=== PATIENT | female | born 1960 | race Caucasian/White ===

== ENCOUNTER 2018-01-06 12:33 | Outpatient (CLI) | payer BC | END 2018-01-06 12:34 | disposition home or self-care (01) | LOC: BICMAMMO 12:33 | PROVIDERS: ATTEND Family Medicine | DX: Z12.31 Encounter for screening mammogram for malignant neoplasm of breast (principal) | CPT/HCPCS: 77063; 77067 ==

== ENCOUNTER 2018-06-03 08:53 | Day surgery (SDC) | payer BC ==
[2018-06-03] MEDS ORDERED: CEFAZOLIN 2 GM/50 ML BAG ONE (09:48)
[2018-06-03] MEDS ORDERED: Midazolam HCl 2 mg/2 ml Vial ONE ×2 (10:07→12:25)
[2018-06-03] MEDS ORDERED: Fentanyl 100 MCG/2 ML VIAL ONE ×2 (10:08→12:25)
[2018-06-03] MEDS ORDERED: Bupivacaine HCl 0.5%/Epinephrine 1:200,000/PF 30 ml Vial ONE (12:37)
[2018-06-03] MEDS ORDERED: PROPOFOL 200 MG/20 ML VIAL ONE (14:19)
--- NOTE | 2018-06-03 16:51 | OP ---
DATE OF OPERATION: 06/03/2018 PREOPERATIVE DIAGNOSES: 1. Ganglion cyst on the volar radial aspect of the left wrist. 2. Left de Quervain's tenosynovitis. POSTOPERATIVE DIAGNOSES: 1. Ganglion cyst from the flexor tendon sheath of the flexor carpi radialis. 2. Left de Quervain's tenosynovitis. PROCEDURES PERFORMED: 1. Excision of ganglion cyst from the flexure tendon sheath of the flexor carpi radialis of the left wrist. 2. Left de Quervain's release. SURGEON: Rigo Pitts MD. ANESTHESIA: General. TECHNIQUE: The patient was given preoperative IV antibiotics, taken to the operating room, placed in supine position. Satisfactory general anesthesia was performed. Left hand and upper extremity was sterilely prepped and draped in usual fashion. After exsanguination, the tourniquet was raised to 25 0 mmHg. A longitudinal incision was made on the volar radial aspect of the wrist directly over the ga nglion cyst. Blunt dissection was made down to the ganglion cyst. The small branches of the radial nerve were retracted out of the way. The radial artery was identified and retracted out of the way. The ganglion cyst, which measured approximately 1.5 x 1.5 cm was bluntly dissected down to the volar aspect of the flexor carpi radialis and the ganglion cyst was removed along with additional tendency to try to prevent recurrence of the ganglion cyst. The underlying flexor carpi radialis tendon was normal. The ganglion cyst had a normal synovial wall with a clear gelatinous fluid, which was diagno stic for ganglion cyst. Blunt dissection was then made to the first dorsal compartment on the radial aspect of the wrist and the tight first dorsal compartment was released. The abductor pollicis long us and extensor pollicis brevis tendons were both intact and in good condition and were completely fr eed up. The wound was then irrigated with normal saline. The tourniquet was released. Good hemosta sis was maintained and the wound was closed using 3-0 Rapide. Sterile dressing was applied. The pat ient was awakened, extubated, and transferred to the recovery room in stable condition. ESTIMATED BLOOD LOSS: Minimal. COMPLICATIONS: None. TOURNIQUET TIME: 15 minutes. DISCHARGE MEDICATIONS: The patient is taking ibuprofen 800 mg every 8 hours as needed for pain and w e will continue with that. She will follow up in my office in 1 week.
--- NOTE | 2018-06-08 21:49 | EKG ---
Test Reason : PREOP Blood Pressure : / mmHG Vent. Rate : 063 BPM Atrial Rate : 063 BPM P-R Int : 126 ms QRS Dur : 116 ms QT Int : 438 ms P-R-T Axes : 040 017 016 degrees QTc Int : 448 ms Normal sinus rhythm Incomplete right bundle branch block Borderline ECG When compared with ECG of 11-JUL-2016 17:12, Incomplete right bundle branch block is now Present Confirmed by SUSANNAH TAPIA (2) on 06/08/2018 9:48:57 PM Referred By: SHAREE Confirmed By:SUSANNAH TAPIA
== END 2018-06-03 14:30 | disposition home or self-care (01) ==
LOC: SDC 08:53
PROVIDERS: ATTEND Orthopaedic Surgery
PROC: 0LN60ZZ Release Left Lower Arm and Wrist Tendon, Open Approach (ICD-10-PCS; principal; 2018-06-03)
PROC: 0LB60ZZ Excision of Left Lower Arm and Wrist Tendon, Open Approach (ICD-10-PCS; principal; 2018-06-03)
DX: M67.432 Ganglion, left wrist (principal); M65.4 Radial styloid tenosynovitis [de Quervain]; G47.30 Sleep apnea, unspecified; Z79.899 Other long term (current) drug therapy
CPT/HCPCS: 93005; 93010; J0670; J2250; J2704; J3010

== ENCOUNTER 2018-12-10 12:29 | Outpatient (CLI) | payer BC ==
--- NOTE | 2018-12-10 14:38 | RAD ---
TWO VIEWS CHEST: Date: 12-10-18 Provided Clinical History: Cough. FINDINGS: Comparison 07-11-16. Cardiac silhouette is within normal limits. Lungs appear clear. No pleural fluid or pneumothorax is a pparent. Degenerative changes are seen involving the spine. IMPRESSION: No evidence for acute cardiopulmonary process. POS: C
== END 2018-12-10 12:30 | disposition home or self-care (01) ==
LOC: BICRAD 12:29
PROVIDERS: ATTEND Family Medicine
DX: R05 Cough (principal)
CPT/HCPCS: 71046

== ENCOUNTER 2019-01-07 12:06 | Outpatient (CLI) | payer BC ==
--- NOTE | 2019-01-07 12:38 | MMO ---
Bilateral MAMMO Bilat Screen [facility]. CLINICAL HISTORY: Patient is 58 years old and is seen for screening. The patient has no family history of breast cancer. The patient has no personal history of cancer. VIEWS: The views performed were: bilateral craniocaudal with tomosynthesis and bilateral mediolateral oblique with tomosynthesis. FILMS COMPARED: The present examination has been compared to prior imaging studies performed at [facility] on 12/24/2014, 12/26/2015, 01/04/2017 and 01/06/2018. MAMMOGRAM FINDINGS: There are scattered fibroglandular densities. Finding 1: There are stable benign appearing calcifications seen in both breasts. Finding 2: There are stable benign appearing densities seen in both breasts. There are no suspicious masses, suspicious calcifications, or new areas of architectural distortion. IMPRESSION: THERE IS NO MAMMOGRAPHIC EVIDENCE OF MALIGNANCY. A ROUTINE FOLLOW-UP MAMMOGRAM IN 1 YEAR IS RECOMMENDED. THE RESULTS OF THIS EXAM WERE SENT TO THE PATIENT. ACR BI-RADS Category 2 - Benign finding MAMMOGRAPHY NOTE: 1. A negative mammogram report should not delay a biopsy if a dominant of clinically suspicious mass is present. 2. Approximately 10% to 15% of breast cancers are not detected by mammography. 3. Adenosis and dense breasts may obscure an underlying neoplasm.
== END 2019-01-07 12:07 | disposition home or self-care (01) ==
LOC: BICMAMMO 12:06
PROVIDERS: ATTEND Family Medicine
DX: Z12.31 Encounter for screening mammogram for malignant neoplasm of breast (principal)
CPT/HCPCS: 77063; 77067

== ENCOUNTER 2019-06-17 03:25 | Inpatient (IN) | payer BC ==
[2019-06-17] MEDS ORDERED: Ketorolac Tromethamine 30 MG/ML VIAL ONE (04:53)
[2019-06-17] MEDS ORDERED: cefTRIAXone\\ROCEPHIN 2 GM VIAL ONE (04:53)
[2019-06-17] MEDS ORDERED: Azithromycin 500 MG VIAL ONE (05:57)
[2019-06-17] MEDS ORDERED: Dextrose 50% Abboject 50 ML SYRINGE ONE (06:38)
[2019-06-17] MEDS ORDERED: Naloxone HCl 0.4 mg/ml Vial ONE (06:46)
[2019-06-17] MEDS ORDERED: Naloxone HCl 2 mg/2 ml Syringe ONE (06:46)
[2019-06-17] MEDS ORDERED: Enoxaparin Sodium 80 MG/0.8 ML SYRINGE ONE (07:25)
[2019-06-17] MEDS ORDERED: Iopamidol-370 76% 500 ML 1 ML ONE (11:36)
[2019-06-17] MEDS ORDERED: Nitroglycerin 0.4 MG TAB (25 Tab Bottle) PO PRN (13:30)
[2019-06-17] MEDS ORDERED: Calcium Carbonate 500 MG ChewTAB PO PRN (13:31)
[2019-06-17] MEDS ORDERED: Senokot S 8.6-50 MG TAB PO PRN (13:31)
[2019-06-17] MEDS ORDERED: ALPRAZolam 0.5 MG TAB PO PRN (13:36)
--- NOTE | 2019-06-17 13:52 | HP ---
PRIMARY CARE: Dr. Rosina Boykin. CHIEF COMPLAINT: Right-sided chest discomfort of one day duration. HISTORY OF PRESENT ILLNESS: The patient is a 58-year-old female with COPD and tobacco dependence, presented to the emergency room with above symptoms. She recently returned from a trip to [place] for Thanksgiving. The pain was right sided that started around 3 p.m. yesterday. The pain was sharp, worse on deep breath. The pain progressively got worse. She had cough, which was essentially nonproductive. She denies any fever or chills. She also had one of her colleagues with pneumonia at work. She denies any nausea, vomiting, diaphoresis, or palpitations. No leg swelling reported. PAST MEDICAL HISTORY: 1. COPD. 2. Hypertension. 3. Tobacco dependence. 4. Anxiety. PAST SURGICAL HISTORY: 1. Hysterectomy. 2. Left knee surgery. 3. Left wrist surgery. ALLERGIES: NO KNOWN DRUG ALLERGIES. CURRENT HOME MEDICATIONS: 1. Albuterol inhaler as needed. 2. Spiriva daily. 3. Xanax as needed. 4. Ibuprofen as needed. 5. Estradiol 0.5 mg daily. 6. Escitalopram 10 mg daily. SOCIAL HISTORY: The patient currently lives at home. She is a former smoker. Denies any drug use. Lives at home with her family. FAMILY HISTORY: Negative for premature coronary artery disease. REVIEW OF SYSTEMS: All other review of systems were reviewed and were found negative. PHYSICAL EXAMINATION: VITAL SIGNS: In the emergency room showed temperature 98.3, respirations 20, heart rate of 78, blood pressure 163/101, O2 saturation of 95% on 2 L nasal cannula. GENERAL: A 58-year-old female, in mild distress due to right-sided chest discomfort. HEENT: Head, atraumatic and normocephalic. Sclerae anicteric. Moist mucous membranes. No oral lesion. NECK: Supple. No JVD. No carotid bruit. LUNGS: Showed scattered rhonchi, mainly at the right base without any wheezing or rales. HEART: S1, S2 present. Regular rate and rhythm. No rubs or gallops. ABDOMEN: Soft, nontender. Bowel sounds present. No rebound or guarding. EXTREMITIES: No edema or calf tenderness. NEUROLOGIC: Grossly nonfocal, moves all 4 extremities. PSYCHIATRY: Alert, awake, and oriented x3. SKIN: Warm and dry. LYMPH NODES: No palpable lymph nodes in the neck. PERIPHERAL VASCULAR: Radial pulses palpable bilaterally. MUSCULOSKELETAL: No joint swelling or tenderness. LABORATORY FINDINGS: WBC 13.6 with hemoglobin 14.9, platelet count of 170. Lactic acid 0.7. Chemistry showed sodium 138, potassium 4.1, chloride 104, bicarb 29, BUN 10, creatinine 0.85, glucose of 125, bilirubin 0.8. AST and ALT, normal range. Telemetry monitoring by my review showed sinus rhythm. CT angiogram of the chest per ER physician report showed pulmonary embolism with possible pulmonary infarct. Official report pending at this time. IMPRESSION: 1. Right-sided chest pain secondary to pulmonary embolism. The patient also has acute hypoxic respiratory failure secondary to pulmonary embolism. 2. Chronic obstructive pulmonary disease. 3. Anxiety. 4. History of tobacco abuse. PLAN: The patient will be monitored on the telemetry unit. She has been started on Lovenox 1 mg/kg b.i.d. Echocardiogram will be obtained. We will also check bilateral lower extremity Doppler. Pulmonary will be consulted. We will check troponin. Echocardiogram will be obtained. We will resume home medications. Vital signs q.4 hourly. Plan of care was discussed with the patient in detail. She stated understanding. Job ID: [id number]
--- NOTE | 2019-06-17 13:52 | CT ---
CTA THORAX UTILIZING IV CONTRAST AND PE PROTOCOL AND 3D REFORMATTED IMAGING: INDICATION: CHEST PAIN COMPARISON None. FINDINGS: There is occlusive thrombus within the anterolateral right lower lobe with pulmonary hemorrhage in th e right lower lobe. There is also a pulmonary infarct involving the posterolateral right lower lobe. There are areas of subsegmental volume loss in the right lower lobe. There is a very tiny right pleur al effusion. There is nonocclusive thrombus within the segmental branches of the left lower lobe. The lobar and segmental branches of the upper lobes are clear. The visualized lobar and segmental branch es of the middle lobe are clear. There are areas of subsegmental volume loss within the middle lobe. The lobar and segmental pulmonary arteries of the lingula are clear. No pathologically enlarged lymph nodes are evident. There is scattered emphysema. There is a calcified granuloma in the right upper l obe. There is a small hiatal hernia. No acute osseous abnormality demonstrated. IMPRESSION: 1. Occlusive segmental pulmonary embolus to the anterolateral right lower lobe with areas of pulmonar y hemorrhage within the anterolateral segment of the right lower lobe. There is also some occlusive t hrombus within the segmental pulmonary arteries of the right posterolateral lower lobe with an area o f pulmonary infarct involving the right lower lobe. There is a small right pleural effusion. 2. Nonocclusive thrombus involving the segmental pulmonary arteries of the left lower lobe. 3. Emphysema. 4. Findings of prior granulomatous disease. 5. Findings were called to Dr. Weinberg at 7:01 a.m. CODE CR POS: OFF
[2019-06-17 14:26] LABS: Troponin I Less than 0.010 ng/mL (< 0.028)
[2019-06-17 14:41] LABS: CKMB 0.8 ng/mL (0-6.6); Troponin I Less than 0.010 ng/mL (< 0.028)
[2019-06-17 14:43] LABS: ALT (SGPT) 15 U/L (8-55); AST (SGOT) 15 U/L (5-34); Albumin 3.9 g/dL (3.5-5.0); Alkaline Phosphatase 64 U/L (40-110); Anion Gap 9 mmol/L (10-20); BUN (Urea Nitrogen) 10 mg/dL (9.8-20.1); Bilirubin, Total 0.8 mg/dL (0.2-1.2); CK (CPK) 41 U/L (29-168); Calc. Creatinine Clearance 0 mL/min (70-130); Carbon Dioxide 29 mmol/L (22-29); Chloride 104 mmol/L (98-107); Estimated GFR-MDRD 68; Glucose 125 mg/dL (70-105); Potassium 4.1 mmol/L (3.5-5.1); Protein, Total 6.9 g/dL (6.0-8.3); Sodium 138 mmol/L (136-145)
[2019-06-17] MEDS ORDERED: Acetaminophen 325 MG TAB ONE (14:54)
[2019-06-17] MEDS: Sodium Chloride 0.9% 1,000 ML IV SCH (15:08)
[2019-06-17] MEDS: Acetaminophen 325 MG TAB PO PRN (15:09)
[2019-06-17] MEDS ORDERED: Cyclobenzaprine 10 MG TAB PO PRN (15:19)
--- NOTE | 2019-06-17 16:12 | ULT ---
BILATERAL LOWER EXTREMITY VENOUS DUPLEX EXAM: Date: 06/17/19 HISTORY: Bilateral leg pain and swelling. FINDINGS: Real-time color Doppler of right and left lower extremity was performed from groin to calf. This incl udes evaluation of the common femoral, superficial and profunda femoral, saphenous, popliteal, and po sterior tibial veins. This shows patent deep venous systems bilaterally. There is normal compressibil ity and augmentation. There is no evidence of deep venous thrombosis. IMPRESSION: No evidence of deep venous thrombosis of either lower extremity. POS: IRON
[2019-06-17 16:39] LABS: %Basophils 0.1 % (0.0-1.0); %Eosinophils 0.3 % (0.0-10.0); %Lymphocytes 18.1 % (21.0-51.0); %Monocytes 6.8 % (0.0-10.0); %Neutrophils 74.7 % (42.0-75.0); Hemoglobin 14.9 g/dL (12.0-16.0); Mean Corpuscular HGB CONC 34.7 g/dL (32.0-36.0); Mean Corpuscular Hemoglobin 32.7 pg (27.0-31.0); Mean Corpuscular Volume 94.3 fL (78.0-98.0); Mean Platelet Volume 8.2 fL (7.4-10.4); Platelet Count 170 thou/uL (130-400); RBC Distribution Width 12.3 % (11.5-14.5); Red Blood Cell (RBC) Count 4.55 mill/uL (4.20-5.40); White Blood Cell (WBC) Count 13.6 thou/uL (4.8-10.8)
[2019-06-17 16:40] LABS: #Lymphocytes 2.5 thou/uL (1.20-3.40); #Monocytes 0.9 thou/uL (0.11-0.59); #Neutrophils 10.2 thou/uL (1.40-6.50)
[2019-06-17 18:30] VITALS: BMI 27.6
[2019-06-17] MEDS: Ipratropium Bromide 2.5 ml Neb NEB SCH (18:30)
--- NOTE | 2019-06-17 20:02 | RAD ---
Exam: Chest one view HISTORY:Chest pain FINDINGS: Exam was performed on 06/17/2019 at 3:47 AM. Exam is on the "taken list" and submitted for official i nterpretation on 06/17/2018 at 8:02 PM Cardiac silhouette: Normal Aorta: Unremarkable Pulmonary vessels: Normal Costophrenic angles: Clear LUNGS: Right lower lobe opacity due to infiltrate Pneumothorax: None Osseous abnormalities: None IMPRESSION: Right lower lobe infiltrate. Transcribed Date/Time: 06/17/2019 8:19 PM
[2019-06-17] MEDS: Famotidine 20 MG TAB PO SCH (20:39)
[2019-06-17] MEDS: Enoxaparin Sodium 80 MG/0.8 ML SYRINGE SC SCH (20:39)
[2019-06-17] MEDS: traMADol HCl 50 MG TAB PO PRN (20:40)
[2019-06-18 04:50] LABS: Hemoglobin 14.3 g/dL (12.0-16.0); Platelet Count 171 thou/uL (130-400)
[2019-06-18 05:00] LABS: ALT (SGPT) 11 U/L (8-55); AST (SGOT) 11 U/L (5-34); Albumin 3.7 g/dL (3.5-5.0); Alkaline Phosphatase 65 U/L (40-110); Anion Gap 12 mmol/L (10-20); BUN (Urea Nitrogen) 8 mg/dL (9.8-20.1); Bilirubin, Total 0.9 mg/dL (0.2-1.2); Calc. Creatinine Clearance 103 mL/min (70-130); Calcium 8.7 mg/dL (7.8-10.44); Carbon Dioxide 24 mmol/L (22-29); Chloride 106 mmol/L (98-107); Estimated GFR-MDRD 74; Globulin 3.1 g/dL (2.4-3.5); Glucose 144 mg/dL (70-105); Potassium 3.6 mmol/L (3.5-5.1); Protein, Total 6.8 g/dL (6.0-8.3); Sodium 138 mmol/L (136-145)
[2019-06-18] MEDS: Acetaminophen 325 MG TAB PO PRN ×3 (06:25→21:16)
[2019-06-18] MEDS: Ipratropium Bromide 2.5 ml Neb NEB SCH ×4 (07:52→18:49)
[2019-06-18] MEDS ORDERED: FLU VACC QS2019-20(6MOS UP)/PF 60 MCG/0.5 ML SYRINGE IM ONE (09:00)
[2019-06-18] MEDS: Escitalopram Oxalate 10 mg Tablet PO SCH (09:33)
[2019-06-18] MEDS: Famotidine 20 MG TAB PO SCH ×2 (09:34→21:08)
[2019-06-18] MEDS: Enoxaparin Sodium 80 MG/0.8 ML SYRINGE SC SCH (09:34)
[2019-06-18] MEDS: traMADol HCl 50 MG TAB PO PRN (12:56)
[2019-06-18] MEDS: Sodium Chloride 0.9% 1,000 ML IV SCH (12:58)
[2019-06-18] MEDS ORDERED: methylPREDNISolone Sod Succ/PF 125 MG/2 ML VIAL IVP SCH (19:30)
[2019-06-18] MEDS: Apixaban 5 MG TAB PO SCH (21:09)
--- NOTE | 2019-06-18 23:17 | PDOC.HOSPP ---
- Subjective Encounter Date: 06/18/19 Encounter Time: 18:00 Subjective: Patient seen and examined for PE. Rt sided CP improving. No new complaints. No overnight events - Objective Vital Signs & Weight: Vital Signs (12 hours) Temp Pulse Resp BP Pulse Ox 06/18/19 19:30 98.6 F 70 16 128/90 94 L 06/18/19 18:49 78 16 92 L 06/18/19 16:00 98.7 F 76 18 130/60 96 06/18/19 13:37 79 20 93 L 06/18/19 12:00 97.9 F 78 16 127/79 96 Weight Admit Weight 187 lb 6 oz Weight 187 lb 6 oz I&O: 06/17/19 06/18/19 06/19/19 06:59 06:59 06:59 Intake Total 1200 1700 Balance 1200 1700 Result Diagrams: 06/18/19 04:03 06/18/19 04:03 EKG Reviewed by me: Yes (Tele SR) Hospitalist ROS - Review of Systems Respiratory: denies: cough, dry, shortness of breath, hemoptysis, SOB with excertion, pleuritic pain, sputum, wheezing, other Cardiovascular: denies: chest pain, palpitations, orthopnea, paroxysmal noc. dyspnea, edema, light headedness, other Gastrointestinal: denies: nausea, vomiting, abdominal pain, diarrhea, constipation, melena, hematochezia, other - Medication Medications: Active Medications Generic Name Dose Route Start Last Admin Trade Name Freq PRN Reason Stop Dose Admin Acetaminophen 650 mg 06/17/19 13:31 06/18/19 21:16 Tylenol PO 650 mg Q4H PRN Administration Headache/Fever/Mild Pain (1-3) Apixaban 10 mg 06/18/19 21:00 06/18/19 21:09 Eliquis PO 10 mg BID JUSTO Administration Escitalopram Oxalate 10 mg 06/18/19 09:00 06/18/19 09:33 Lexapro PO 10 mg DAILY JUSTO Administration Famotidine 20 mg 06/17/19 21:00 06/18/19 21:08 Pepcid PO 20 mg BID JUSTO Administration Sodium Chloride 1,000 mls @ 50 mls/hr 06/17/19 13:45 06/18/19 12:58 Normal Saline 0.9% IV 06/19/19 05:44 1,000 mls .Q20H JUSTO Administration Ipratropium Wilsons 2.5 ml 06/17/19 19:00 06/18/19 18:49 Atrovent NEB 2.5 ml [id number] JUSTO Administration Tramadol HCl 50 mg 06/17/19 15:18 06/18/19 12:56 Ultram PO 50 mg Q4H PRN Administration Moderate Pain (4-6) - Exam General Appearance: NAD Heart: RRR, no gallops, no rubs Respiratory: no rales, no ronchi, rhonchi Gastrointestinal: soft, non-distended, normal bowel sounds Extremities: no edema Hosp A/P - Plan DVT proph w/lovenox Acute hypoxic Resp failure (POA) PE Pleuritic CP due to PE COPD Anxiety Former smoker PLAN: Cont Lovenox Await Echo Risk associated with anticoag d/w patient - she stated understanding Cont other meds
[2019-06-19] MEDS: Ipratropium Bromide 2.5 ml Neb NEB SCH ×3 (01:16→13:37)
--- NOTE | 2019-06-19 02:09 | CON ---
DATE OF CONSULTATION: HISTORY OF PRESENT ILLNESS: Ms. Crandall is a very pleasant woman, who presented to the hospital yesterday morning with complaints of pleuritic chest discomfort. She has had no prior similar symptoms. She did recently take a driving trip to [place] to [facility]. She was put up with the pain for about 18 hours and then came to the emergency room. PAST MEDICAL HISTORY: Remarkable for; 1. Smoking. 2. Hypertension. 3. History of anxiety. 4. History of methamphetamine addiction. She says she only got away from med addiction by getting incarcerated. 5. Status post hysterectomy. 6. History of left knee surgery. 7. History of wrist surgery. MEDICATIONS: She is on; 1. Spiriva. 2. Albuterol. 3. Xanax. 4. Ibuprofen. 5. Estrogen. 6. Escitalopram prior to admission. SOCIAL HISTORY: She said she is still smoking. She denies drinking. She denies using drugs. FAMILY HISTORY: Negative for lung disease in early age. REVIEW OF SYSTEMS: 10-point review of systemsis otherwise negative. She aid she was short of breath yesterday, but that is better today. PHYSICAL EXAMINATION: VITAL SIGNS: She is afebrile. Heart rate 76, respiratory rate is 18, oximetry is up to 96 on room air, blood pressure 130/60. HEAD AND NECK: Unremarkable. LUNGS: Clear. HEART: Regular rhythm. S1 and S2 are normal. ABDOMEN: Soft and nontender. EXTREMITIES: Without clubbing, cyanosis, or edema. DIAGNOSTIC STUDIES: CT pulmonary angiogram is positive for thromboembolic disease. Doppler venography is negative. White count 13.6, hemoglobin 14.9, platelets 170. IMPRESSION AND PLAN: Thromboembolic disease after a trip in a car. She is up to date on her mammograms and screening colonoscopy. We will switch her to p.o. anticoagulants. I would anticipate that she might be a candidate for discharge in a day or two. With regard to her pleuritic chest discomfort, probably one dose of steroids will help with that. We will continue to follow. She has amazingly upfront about her past addiction and struggle with methamphetamine. It is fortunate that she was incarcerated, and was able to get away from it. Actually, I have not met many patients that got away from using methamphetamine. She is labeled as having chronic obstructive pulmonary disease, but it is not clear to me whether or not she has ever had pulmonary function testing. It is not really a non-issue at this point, but this can be done at a later date. TIME SPENT: This is a 50-minute consult, 50% of the time was spent on the unit coordinating care. Job ID: [id number]
[2019-06-19] MEDS: Famotidine 20 MG TAB PO SCH (08:44)
[2019-06-19] MEDS: Escitalopram Oxalate 10 mg Tablet PO SCH (08:44)
[2019-06-19] MEDS: Apixaban 5 MG TAB PO SCH (08:44)
[2019-06-19 11:29] VITALS: BP 152/81; TEMP 97.7
--- NOTE | 2019-06-19 13:51 | PRG ---
DATE OF SERVICE: 06/19/2019 SUBJECTIVE: Ms. Crandall's pleuritic chest pain is gone. She says she feels great. She wants to go home. VITAL SIGNS: She is afebrile. Heart rate 80, respiratory rate 18, satting 92% on room air, blood pressure 152/81. LUNGS: Clear. HEART: ABDOMEN: Soft. Echocardiogram was ordered. Mild mitral regurgitation, ejection fraction was noted. IMPRESSION AND PLAN: Thromboembolic disease, most likely related to recent long trip in a motor vehicle. PLAN: Eliquis loading dose. Switch to Eliquis maintenance dose. I have asked her to follow up with me in . I have given her my office number to make a followup appointment. Job ID: [id number]
--- NOTE | 2019-06-19 16:49 | DIS ---
DATE OF ADMISSION: 06/17/2019 DATE OF DISCHARGE: 06/19/2019 DISCHARGE DISPOSITION: Home. FOLLOWUP: 1. Follow up with primary care physician, Dr. Rosina Kwon, in 3 days. 2. Follow up with Dr. Miguelito Oconnor in 2 to 3 weeks. ALLERGIES: NO KNOWN DRUG ALLERGIES. DISCHARGE MEDICATIONS: Eliquis 10 mg twice daily for total of seven days and then 5 mg b.i.d. All other home medications were left unchanged. The patient was seen on the day of discharge. Denies any new complaints. No chest pain, shortness of breath, or palpitations. BRIEF HOSPITAL COURSE: The patient is a 58-year-old female, who presented to the emergency room with right-sided chest discomfort of one day duration. CT angiogram of the chest was consistent with occlusive segmental pulmonary embolus to the anterolateral right lower lobe with areas of pulmonary hemorrhage within the anterolateral segment of the right lower lobe. There was also a right posterolateral lower lobe with an area of pulmonary infarct with right-sided pleural effusion. There was nonocclusive thrombus involving the segmental arteries of left lower lobe as well. An echocardiogram was obtained that showed ejection fraction 55% to 60% with diastolic dysfunction, mild mitral regurgitation, and mild tricuspid regurgitation. Bilateral lower extremity Doppler was negative. The patient was evaluated by Pulmonary/Critical Care. Lovenox has been switched to Eliquis. She understands the risk associated with anticoagulation. She has been cleared by Dr. Oconnor for discharge. FINAL DIAGNOSES: 1. Acute hypoxic respiratory failure secondary to bilateral pulmonary embolism, present on admission. 2. Pleuritic chest pain secondary to pulmonary embolism. 3. Chronic obstructive pulmonary disease. 4. Anxiety. 5. Former smoker. Plan of care was discussed with the patient in detail. She stated understanding. Job ID: [id number]
== END 2019-06-19 14:19 | disposition home or self-care (01) | DRG 175 ==
LOC: ERS 03:25 → ERHOLD 13:25 → 2NO 17:16
PROVIDERS: ADMIT Internal Medicine; ATTEND Internal Medicine
DX: I26.09 Other pulmonary embolism with acute cor pulmonale (principal); J96.01 Acute respiratory failure with hypoxia; R04.89 Hemorrhage from other sites in respiratory passages; J44.9 Chronic obstructive pulmonary disease, unspecified; F41.9 Anxiety disorder, unspecified; I10 Essential (primary) hypertension; Z90.710 Acquired absence of both cervix and uterus; Z79.51 Long term (current) use of inhaled steroids; Z79.899 Other long term (current) drug therapy; Z87.891 Personal history of nicotine dependence
CPT/HCPCS: 36415; 71045; 71275; 80053; 82550; 82553; 83605; 83735; 83880; 84484; 85014; 85018; 85025; 85049; 87040; 93306; 93970; 94640; 94760; 99285; J0456; J0696; J1650; J1885; J2310; J2930; Q9967

== ENCOUNTER 2019-08-19 12:34 | Outpatient (CLI) | payer BC ==
--- NOTE | 2019-08-19 13:00 | RAD ---
XR Chest Pa Lat @ P[facility] HISTORY: Dyspnea COMPARISON: 06/17/2019 FINDINGS: The heart size is normal. The lungs are well expanded without focal areas of consolidation, pneumothorax or pleural effusions. There are degenerative changes in the spine IMPRESSION: No radiographic evidence of acute cardiopulmonary process.
== END 2019-08-19 12:35 | disposition home or self-care (01) ==
LOC: RAD 12:34
PROVIDERS: ATTEND Internal Medicine Critical Care Medicine
DX: R06.00 Dyspnea, unspecified (principal)
CPT/HCPCS: 71046

== ENCOUNTER 2019-12-29 12:40 | Outpatient (CLI) | payer BC ==
--- NOTE | 2019-12-29 12:57 | RAD ---
PA AND LATERAL VIEWS CHEST: HISTORY: Dyspnea. COMPARISON: 08/19/2019. FINDINGS: The heart size is normal. The aorta is tortuous. The lungs are expanded without focal areas of cons olidation, pneumothoraces, or pleural effusions. There are degenerative changes in the spine. IMPRESSION: No acute process. POS: RENNY
== END 2019-12-29 12:41 | disposition home or self-care (01) ==
LOC: BICRAD 12:40
PROVIDERS: ATTEND Internal Medicine Critical Care Medicine
DX: R06.00 Dyspnea, unspecified (principal)
CPT/HCPCS: 71046

== ENCOUNTER 2020-02-17 11:52 | Outpatient (CLI) | payer BC ==
--- NOTE | 2020-02-17 12:55 | MMO ---
Bilateral MAMMO Bilat Screen [facility]. CLINICAL HISTORY: Patient is 59 years old and is seen for screening. The patient has no family history of breast cancer. The patient has no personal history of cancer. VIEWS: The views performed were: bilateral craniocaudal with tomosynthesis and bilateral mediolateral oblique with tomosynthesis. FILMS COMPARED: The present examination has been compared to prior imaging studies performed at [facility] on 12/26/2015, 01/04/2017, 01/06/2018 and 01/07/2019. This study has been interpreted with the assistance of computer-aided detection. MAMMOGRAM FINDINGS: There are scattered fibroglandular densities. There are no suspicious masses, suspicious calcifications, or new areas of architectural distortion. IMPRESSION: THERE IS NO MAMMOGRAPHIC EVIDENCE OF MALIGNANCY. A ROUTINE FOLLOW-UP MAMMOGRAM IN 1 YEAR IS RECOMMENDED. THE RESULTS OF THIS EXAM WERE SENT TO THE PATIENT. ACR BI-RADS Category 1 - Negative MAMMOGRAPHY NOTE: 1. A negative mammogram report should not delay a biopsy if a dominant of clinically suspicious mass is present. 2. Approximately 10% to 15% of breast cancers are not detected by mammography. 3. Adenosis and dense breasts may obscure an underlying neoplasm. Reported by: GEORGIANA IZQUIERDO MD Electonically Signed: [id number]
== END 2020-02-17 11:53 | disposition home or self-care (01) ==
LOC: BICMAMMO 11:52
PROVIDERS: ATTEND Family Medicine
DX: Z12.31 Encounter for screening mammogram for malignant neoplasm of breast (principal)
CPT/HCPCS: 77063; 77067

== ENCOUNTER 2020-06-01 14:48 | Emergency (ER) | payer BC ==
[~2020-06-01 14:48] MED LIST: Iopamidol-370 76% 500 ML 1 ML ONE
[2020-06-01 15:32] LABS: #Basophils 0.1 thou/uL (0.0-0.2); #Eosinphils 0.1 thou/uL (0.0-0.7); #Lymphocytes 4.1 thou/uL (1.20-3.40); #Monocytes 0.5 thou/uL (0.11-0.59); %Basophils 0.8 % (0.0-1.0); %Eosinophils 0.7 % (0.0-10.0); %Lymphocytes 41.9 % (21.0-51.0); %Monocytes 5.4 % (0.0-10.0); %Neutrophils 51.3 % (42.0-75.0); Hemoglobin 16.5 g/dL (12.0-16.0); Mean Corpuscular HGB CONC 35.1 g/dL (32.0-36.0); Mean Corpuscular Hemoglobin 32.8 pg (27.0-31.0); Mean Corpuscular Volume 93.5 fL (78.0-98.0); Platelet Count 183 thou/uL (130-400); RBC Distribution Width 12.7 % (11.5-14.5); Red Blood Cell (RBC) Count 5.03 mill/uL (4.20-5.40); White Blood Cell (WBC) Count 9.7 thou/uL (4.8-10.8)
[2020-06-01 15:49] LABS: ALT (SGPT) 15 U/L (8-55); AST (SGOT) 18 U/L (5-34); Albumin 4.4 g/dL (3.5-5.0); Alkaline Phosphatase 67 U/L (40-110); Anion Gap 14 mmol/L (10-20); BUN (Urea Nitrogen) 10 mg/dL (9.8-20.1); Bilirubin, Total 0.6 mg/dL (0.2-1.2); Calc. Creatinine Clearance 0 mL/min (70-130); Calcium 10.1 mg/dL (7.8-10.44); Carbon Dioxide 29 mmol/L (22-29); Chloride 103 mmol/L (98-107); Estimated GFR-MDRD 55; Globulin 3.3 g/dL (2.4-3.5); Glucose 105 mg/dL (70-105); Potassium 3.8 mmol/L (3.5-5.1); Protein, Total 7.7 g/dL (6.0-8.3); Sodium 142 mmol/L (136-145)
--- NOTE | 2020-06-01 17:05 | CT ---
CTA Angio Chest W WO Con 06/01/2020 4:45 PM Indication: History of neck pain and dyspnea Technique: Multiple CTA images were obtained of the thorax with IV contrast. 3-D rendering: MIP quincy nstructed images were created and reviewed. Comparison: Prior CT PE examination dated June 17, 2019 Findings: Pulmonary arteries: There is an atretic appearance of the anterior lateral right lower lobe segmenta l pulmonary artery likely reflecting sequela of chronic pulmonary embolus seen on the prior examination. Mild areas of scarring are present within the anterolateral right lower lobe. No acute c entral or segmental pulmonary embolus is evident. Heart and Aorta: Normal appearing. Mediastinum:There are mildly prominent pretracheal and left tracheobronchial lymph nodes. The largest measures 1.2 cm. These are slightly more pronounced than on the prior exam. Lungs:There are hazy groundglass airspace opacities within both lungs which are nonspecific. Findings can be seen with diffuse subsegmental atelectasis, alveolar edema or hypersensitivity pneumonitis. Diffuse atypical infectious process and pneumonitis could have a similar appearance. Pleural space: Clear. Upper Abdomen: No acute abnormality. Osseous Structures: There is thoracolumbar scoliosis. There is scattered degenerative and osteoarthr itic change present. No acute fracture or subluxation demonstrated. Soft tissues:No abnormality. Other findings:None. Impression: 1. No acute central or segmental pulmonary embolus demonstrated. Slight atretic appearance to the ant erolateral right lower lobe segmental pulmonary artery likely reflecting sequela of chronic PE. There is mild scarring within the anterolateral right lower lobe likely related to prior pulmonary in farct seen on comparison CT dated 06/17/2019. 2. Diffuse groundglass airspace opacity is nonspecific. This can be seen with peripheral airways dise ase and subsegmental atelectasis; however, entities such as alveolar edema, pulmonary hemorrhage, hypersensitivity pneumonitis or an atypical infectious pneumonitis could produce a similar appearance . 3. Nonspecific mildly prominent mediastinal lymph nodes may be reactive in nature. As a conservative measure a follow-up CT in 6-8 weeks may be helpful to document stability or resolution.
--- NOTE | 2020-06-01 17:29 | CT ---
CTA HEAD WITH AND WITHOUT CONTRAST CTA NECK WITH CONTRAST: 06/01/20 TECHNIQUE: CT head performed without IV contrast. This is followed by CTA head with angio protocol including CTA neck with angio protocol with multiplanar reconstruction and 3D postprocessing. INDICATIONS: Headache. CT HEAD WITHOUT CONTRAST: Ventricles have normal size and position. There is no evidence of intracranial hemorrhage. No mass, e deneen, or infarct. Paranasal sinuses appear clear. Evidence of mucosal edema in the left mastoid air c ells. IMPRESSION: No acute intracranial process. CTA HEAD: The intracranial internal carotid arteries are patent and symmetric. The cavernous portions of both ICAs are patent. There is mild fusiform ectasia of both cavernous ICAs . The middle cerebral arteries are patent and symmetric. The basilar artery is patent. The posterior cerebral arteries are both visualized. There is evidence of stenosis involving the P1 segment of the left posterior cerebral just beyond its origin from the b asilar artery. No definite aneurysm identified. IMPRESSION: 1. There is evidence of significant stenosis at the origin of the left posterior cerebral artery . 2. CTA head otherwise unremarkable. CTA NECK: No stenosis at the origin of the arch vessels. Common carotid arteries are patent and symmetric. The internal carotid arteries and carotid bulbs are unremarkable. Both internal carotid arteries are mild ly tortuous; however, there is no evidence of extracranial internal carotid artery stenosis. Vertebral arteries are patent. Mildly dominant right vertebral. Soft tissues unremarkable. Mild degenerative change in the cervical spine. Spondylosis seen at C3-4 p roduces mild cord compression and there is evidence of bilateral foraminal stenosis at this level. Soft tissues reveal a mass extending from the isthmus of the thyroid into the substernal region which measures up to 2.2 cm. Recommend dedicated evaluation with elective thyroid ultrasound exam. IMPRESSION: 1. Unremarkable CTA neck. 2. Mass extending inferiorly from the isthmus of the thyroid which is heterogeneous. Recommend t hyroid ultrasound to further evaluate. 3. Degenerative changes in the cervical spine with spondylosis at C3-4 producing cord compressio n and central canal and foraminal stenosis. Code T
--- NOTE | 2020-06-02 11:46 | CT ---
CTA HEAD WITH AND WITHOUT CONTRAST CTA NECK WITH CONTRAST: 06/01/20 TECHNIQUE: CT head performed without IV contrast. This is followed by CTA head with angio protocol including CTA neck with angio protocol with multiplanar reconstruction and 3D postprocessing. INDICATIONS: Headache. CT HEAD WITHOUT CONTRAST: Ventricles have normal size and position. There is no evidence of intracranial hemorrhage. No mass, e deneen, or infarct. Paranasal sinuses appear clear. Evidence of mucosal edema in the left mastoid air c ells. IMPRESSION: No acute intracranial process. CTA HEAD: The intracranial internal carotid arteries are patent and symmetric. The cavernous portions of both ICAs are patent. There is mild fusiform ectasia of both cavernous ICAs . The middle cerebral arteries are patent and symmetric. The basilar artery is patent. The posterior cerebral arteries are both visualized. There is evidence of stenosis involving the P1 segment of the left posterior cerebral just beyond its origin from the b asilar artery. No definite aneurysm identified. IMPRESSION: 1. There is evidence of significant stenosis at the origin of the left posterior cerebral tk ry. 2. CTA head otherwise unremarkable. CTA NECK: No stenosis at the origin of the arch vessels. Common carotid arteries are patent and symmetric. The internal carotid arteries and carotid bulbs are unremarkable. Both internal carotid arteries are mild ly tortuous; however, there is no evidence of extracranial internal carotid artery stenosis. Vertebral arteries are patent. Mildly dominant right vertebral. Soft tissues unremarkable. Mild degenerative change in the cervical spine. Spondylosis seen at C3-4 p roduces mild cord compression and there is evidence of bilateral foraminal stenosis at this level. Soft tissues reveal a mass extending from the isthmus of the thyroid into the substernal region which measures up to 2.2 cm. Recommend dedicated evaluation with elective thyroid ultrasound exam. IMPRESSION: 1. Unremarkable CTA neck. 2. Mass extending inferiorly from the isthmus of the thyroid which is heterogeneous. Recommend thyroid ultrasound to further evaluate. 3. Degenerative changes in the cervical spine with spondylosis at C3-4 producing cord compress ion and central canal and foraminal stenosis. Code T
--- NOTE | 2020-06-04 16:34 | EKG ---
Test Reason : Blood Pressure : / mmHG Vent. Rate : 059 BPM Atrial Rate : 059 BPM P-R Int : 142 ms QRS Dur : 108 ms QT Int : 412 ms P-R-T Axes : 082 -13 018 degrees QTc Int : 407 ms Sinus bradycardia Incomplete right bundle branch block Borderline ECG Confirmed by SAMANTHA KATE DO ([id number]), web content editor JAI RENTERIA ([id number] on 06/04/2020 4:33:59 PM Referred By: Confirmed By:SAMANTHA KATE DO
== END 2020-06-01 18:41 | disposition home or self-care (01) ==
LOC: ERS 14:48
DX: M48.02 Spinal stenosis, cervical region (principal); I66.22 Occlusion and stenosis of left posterior cerebral artery; M54.6 Pain in thoracic spine; E07.89 Other specified disorders of thyroid; F17.210 Nicotine dependence, cigarettes, uncomplicated; Z79.01 Long term (current) use of anticoagulants; Z79.899 Other long term (current) drug therapy
CPT/HCPCS: 36415; 70496; 70498; 71275; 80053; 84484; 85025; 85379; 93005; Q9967

== ENCOUNTER 2020-06-20 12:17 | Day surgery (SDC) | payer BC ==
[2020-06-20] MEDS ORDERED: Sodium Bicarbonate 2.5 MEQ/5 ML VIAL ONE (12:40)
--- NOTE | 2020-06-20 14:03 | ULT ---
THYROID ULTRASOUND INDICATION: History of thyroid nodules TECHNIQUE: Grayscale and color Doppler images were obtained of the thyroid gland. COMPARISON: Thyroid ultrasound dated 06/07/2020 FINDINGS: Right thyroid lobe: The right thyroid lobe measures 3.1 x 1.0 x 1.1 cm. No large discrete nodule seen within the right thyroid lobe. Thyroid isthmus: The thyroid isthmus measures 1.91 cm. cm. There is a large solid well-circumscribed nodule measuring 2.5 x 1.7 x 2.2 cm with small microcalcifications seen within the lower aspect of the midline thyroid isthmus. Left thyroid lobe: The left thyroid lobe measures 3.4 x 1.3 x 1.5 cm. The 2 separate nodules within t he left thyroid gland seen on the comparison thyroid ultrasound are not well detailed on the current study. IMPRESSION: 1. TIRADS 4 lesion within the lower thyroid isthmus. This lesion is suspicious. Recommend sonographic guided FNA. 2. Recommend follow-up thyroid ultrasound in one year for the solid and mixed cystic and solid nodule seen on the comparison thyroid ultrasound dated 06/07/2020. The solid nodule within the lower pole of the left thyroid gland is consistent with a TIRADS 3 lesion in measured 1.3 x 0.9 x 0.9 cm. The no dules were not well seen on the current thyroid ultrasound.
--- NOTE | 2020-06-20 14:08 | ULT ---
Ultrasound-guided thyroid nodule fine needle aspiration INDICATION: TIRADS 4 lesion of the lower thyroid isthmus. COMPARISON: Prior thyroid ultrasound dated June 07, 2020 from [facility]. TECHNIQUE: Informed consent was obtained. Preprocedure ultrasound redemonstrated the large solid nodu le involving the lower aspect of the thyroid isthmus. Site overlying this region was prepped and draped in the usual sterile fashion. Buffered 1% lidocaine was administered to the overlying subcutan eous tissues and strap musculature. Under ultrasound guidance, 4 separate 25-gauge needles were guided down into the nodule and 4 separate FNA samples were obtained. The director of speech pathology was on -site to acquire the samples as they were obtained. The patient tolerated the procedure without difficulty. Total time for the exam was approximately 30 minutes. IMPRESSION: Successful ultrasound-guided FNA of a large TIRADS 4 solid nodule involving the lower asp ect of the thyroid isthmus.
[2020-06-20 14:12] VITALS: BP 130/78; TEMP 98.2
[2020-06-20 14:13] VITALS: BMI 28.8
== END 2020-06-20 14:00 | disposition home or self-care (01) ==
LOC: ULT 12:17
PROVIDERS: ATTEND Otolaryngology Plastic Surgery within the Head & Neck
PROC: BG44ZZZ Ultrasonography of Thyroid Gland (ICD-10-PCS; principal; 2020-06-20)
PROC: 0GJ Endocrine System, Inspection (ICD-10-PCS; principal; 2020-06-20)
DX: E04.1 Nontoxic single thyroid nodule (principal); J44.9 Chronic obstructive pulmonary disease, unspecified; I10 Essential (primary) hypertension; F17.200 Nicotine dependence, unspecified, uncomplicated; G47.30 Sleep apnea, unspecified; B19.20 Unspecified viral hepatitis C without hepatic coma; Z79.01 Long term (current) use of anticoagulants; Z79.899 Other long term (current) drug therapy
CPT/HCPCS: 60100; 76536; 76942; 88173

== ENCOUNTER 2021-04-05 22:22 | Emergency (ER) | payer BC ==
[2021-04-05] MEDS ORDERED: Diazepam 10 MG/2 ML SYRINGE ONE (22:47)
[2021-04-05 23:38] LABS: #Basophils 0.1 thou/uL (0.0-0.2); #Eosinphils 0.1 thou/uL (0.0-0.7); #Lymphocytes 4.8 thou/uL (1.20-3.40); #Monocytes 0.6 thou/uL (0.11-0.59); #Neutrophils 4.8 thou/uL (1.40-6.50); %Basophils 1.3 % (0.0-1.0); %Eosinophils 0.9 % (0.0-10.0); %Monocytes 5.4 % (0.0-10.0); %Neutrophils 46.5 % (42.0-75.0); Hemoglobin 15.5 g/dL (12.0-16.0); Mean Corpuscular HGB CONC 34.7 g/dL (32.0-36.0); Mean Corpuscular Hemoglobin 32.9 pg (27.0-31.0); Mean Corpuscular Volume 94.9 fL (78.0-98.0); Mean Platelet Volume 8.7 fL (7.4-10.4); Platelet Count 152 thou/uL (130-400); RBC Distribution Width 12.7 % (11.5-14.5); White Blood Cell (WBC) Count 10.4 thou/uL (4.8-10.8)
[2021-04-05 23:49] LABS: INR-International Normal Ratio 1.1; PTT 34.8 sec (22.9-36.1)
[2021-04-06 00:05] LABS: ALT (SGPT) 12 U/L (8-55); AST (SGOT) 17 U/L (5-34); Albumin 4.1 g/dL (3.4-4.8); Alkaline Phosphatase 65 U/L (40-110); Anion Gap 12 mmol/L (10-20); BUN (Urea Nitrogen) 9 mg/dL (9.8-20.1); Bilirubin, Total 0.4 mg/dL (0.2-1.2); Calc. Creatinine Clearance 0 mL/min (70-130); Calcium 9.2 mg/dL (7.8-10.44); Carbon Dioxide 29 mmol/L (23-31); Chloride 109 mmol/L (98-107); Globulin 3.1 g/dL (2.4-3.5); Glucose 87 mg/dL (80-115); Potassium 3.6 mmol/L (3.5-5.1); Protein, Total 7.2 g/dL (5.8-8.1); Sodium 146 mmol/L (136-145)
== END 2021-04-06 00:28 | disposition home or self-care (01) ==
LOC: ERS 22:22
DX: G44.209 Tension-type headache, unspecified, not intractable (principal); F17.210 Nicotine dependence, cigarettes, uncomplicated
CPT/HCPCS: 36415; 70450; 72125; 80053; 85025; 85610; 85730; 96374; J3360

== ENCOUNTER 2021-06-19 09:48 | Outpatient (CLI) | payer BC | END 2021-06-19 09:49 | disposition home or self-care (01) | LOC: BICULT 09:48 | PROVIDERS: ATTEND Otolaryngology Plastic Surgery within the Head & Neck | DX: E07.9 Disorder of thyroid, unspecified (principal) | CPT/HCPCS: 76536 ==

== ENCOUNTER 2021-09-06 15:52 | Emergency (ER) | payer BC ==
[2021-09-06 16:33] LABS: #Basophils 0.1 thou/uL (0.0-0.2); #Eosinphils 0.1 thou/uL (0.0-0.7); #Lymphocytes 3.3 thou/uL (1.20-3.40); #Monocytes 0.6 thou/uL (0.11-0.59); #Neutrophils 4.4 thou/uL (1.40-6.50); %Basophils 0.9 % (0.0-1.0); %Lymphocytes 38.8 % (21.0-51.0); %Monocytes 6.9 % (0.0-10.0); %Neutrophils 52.5 % (42.0-75.0); Hemoglobin 15.2 g/dL (12.0-16.0); Mean Corpuscular HGB CONC 33.3 g/dL (32.0-36.0); Mean Corpuscular Hemoglobin 31.8 pg (27.0-31.0); Mean Corpuscular Volume 95.6 fL (78.0-98.0); Mean Platelet Volume 7.9 fL (7.4-10.4); Platelet Count 162 thou/uL (130-400); RBC Distribution Width 12.7 % (11.5-14.5); Red Blood Cell (RBC) Count 4.77 mill/uL (4.20-5.40); White Blood Cell (WBC) Count 8.5 thou/uL (4.8-10.8)
[2021-09-06 16:56] LABS: ALT (SGPT) 20 U/L (8-55); AST (SGOT) 24 U/L (5-34); Albumin 4.4 g/dL (3.4-4.8); Alkaline Phosphatase 63 U/L (40-110); Anion Gap 13 mmol/L (10-20); BUN (Urea Nitrogen) 13 mg/dL (9.8-20.1); Bilirubin, Total 0.5 mg/dL (0.2-1.2); Calc. Creatinine Clearance 0 mL/min (70-130); Calcium 9.7 mg/dL (7.8-10.44); Carbon Dioxide 26 mmol/L (23-31); Chloride 108 mmol/L (98-107); Globulin 2.8 g/dL (2.4-3.5); Glucose 101 mg/dL (80-115); Lipase 61 U/L (8-78); Potassium 4.2 mmol/L (3.5-5.1); Protein, Total 7.2 g/dL (5.8-8.1); Sodium 143 mmol/L (136-145)
[2021-09-06 19:12] LABS: Troponin I Less than 0.010 ng/mL (< 0.028)
== END 2021-09-06 19:54 | disposition home or self-care (01) ==
LOC: ERS 15:52
DX: R91.1 Solitary pulmonary nodule (principal); F17.210 Nicotine dependence, cigarettes, uncomplicated
CPT/HCPCS: 36415; 71045; 71275; 80053; 83690; 83880; 84484; 85025; 85379; 93005

== ENCOUNTER 2021-11-16 09:20 | Emergency (ER) | payer BC ==
[2021-11-16 10:42] LABS: #Basophils 0.1 thou/uL (0.0-0.2); #Lymphocytes 2.9 thou/uL (1.20-3.40); #Monocytes 0.4 thou/uL (0.11-0.59); #Neutrophils 4.8 thou/uL (1.40-6.50); %Eosinophils 0.6 % (0.0-10.0); %Lymphocytes 35.4 % (21.0-51.0); Hemoglobin 14.5 g/dL (12.0-16.0); Mean Corpuscular HGB CONC 33.2 g/dL (32.0-36.0); Mean Corpuscular Hemoglobin 32.3 pg (27.0-31.0); Mean Corpuscular Volume 97.1 fL (78.0-98.0); Mean Platelet Volume 7.8 fL (7.4-10.4); Platelet Count 170 thou/uL (130-400); RBC Distribution Width 12.4 % (11.5-14.5); Red Blood Cell (RBC) Count 4.49 mill/uL (4.20-5.40); White Blood Cell (WBC) Count 8.2 thou/uL (4.8-10.8)
[2021-11-16 11:01] LABS: ALT (SGPT) 19 U/L (8-55); AST (SGOT) 21 U/L (5-34); Albumin 3.9 g/dL (3.4-4.8); Alkaline Phosphatase 57 U/L (40-110); Anion Gap 10 mmol/L (10-20); BUN (Urea Nitrogen) 8 mg/dL (9.8-20.1); Bilirubin, Total 0.5 mg/dL (0.2-1.2); CK (CPK) 73 U/L (29-168); Calc. Creatinine Clearance 0 mL/min (70-130); Calcium 9.1 mg/dL (7.8-10.44); Carbon Dioxide 25 mmol/L (23-31); Chloride 109 mmol/L (98-107); Globulin 2.7 g/dL (2.4-3.5); Glucose 95 mg/dL (80-115); Potassium 4.1 mmol/L (3.5-5.1); Protein, Total 6.6 g/dL (5.8-8.1); Sodium 140 mmol/L (136-145)
[2021-11-16 11:04] LABS: CKMB 1.1 ng/mL (0-6.6)
== END 2021-11-16 13:03 | disposition home or self-care (01) ==
LOC: ERS 09:20
DX: J44.1 Chronic obstructive pulmonary disease with (acute) exacerbation (principal); J20.9 Acute bronchitis, unspecified; I45.10 Unspecified right bundle-branch block; F17.210 Nicotine dependence, cigarettes, uncomplicated; Z87.19 Personal history of other diseases of the digestive system; Z86.711 Personal history of pulmonary embolism; Z79.01 Long term (current) use of anticoagulants; Z79.899 Other long term (current) drug therapy
CPT/HCPCS: 36415; 71275; 80053; 82550; 82553; 83880; 84484; 85025; 93005; 94760; J7620

== ENCOUNTER 2021-12-21 13:06 | Outpatient (CLI) | payer BC | END 2021-12-21 13:07 | disposition home or self-care (01) | LOC: CT 13:06 | PROVIDERS: ATTEND Internal Medicine Cardiovascular Disease | DX: G44.52 New daily persistent headache (NDPH) (principal) | CPT/HCPCS: 70450 ==

== ENCOUNTER 2022-01-04 07:51 | Inpatient (IN) | payer BC ==
[2022-01-04] MEDS ORDERED: methylPREDNISolone Sod Succ/PF 125 MG/2 ML VIAL ONE (08:27)
[2022-01-04 08:40] LABS: #Basophils 0.1 thou/uL (0.0-0.2); #Lymphocytes 3.1 thou/uL (1.20-3.40); #Monocytes 0.5 thou/uL (0.11-0.59); #Neutrophils 7.7 thou/uL (1.40-6.50); %Basophils 0.4 % (0.0-1.0); %Eosinophils 0.4 % (0.0-10.0); %Lymphocytes 26.7 % (21.0-51.0); %Monocytes 4.7 % (0.0-10.0); %Neutrophils 67.8 % (42.0-75.0); Hemoglobin 17.6 g/dL (12.0-16.0); Mean Corpuscular HGB CONC 33.2 g/dL (32.0-36.0); Mean Corpuscular Hemoglobin 31.9 pg (27.0-31.0); Mean Platelet Volume 8.7 fL (7.4-10.4); Platelet Count 192 thou/uL (130-400); RBC Distribution Width 13.3 % (11.5-14.5); Red Blood Cell (RBC) Count 5.53 mill/uL (4.20-5.40); White Blood Cell (WBC) Count 11.4 thou/uL (4.8-10.8)
[2022-01-04 09:00] LABS: ALT (SGPT) 33 U/L (8-55); AST (SGOT) 29 U/L (5-34); Albumin 4.6 g/dL (3.4-4.8); Alkaline Phosphatase 70 U/L (40-110); Anion Gap 18 mmol/L (10-20); BUN (Urea Nitrogen) 12 mg/dL (9.8-20.1); Bilirubin, Total 1.5 mg/dL (0.2-1.2); Calc. Creatinine Clearance 0 mL/min (70-130); Calcium 10.7 mg/dL (7.8-10.44); Carbon Dioxide 22 mmol/L (23-31); Chloride 103 mmol/L (98-107); Globulin 3.5 g/dL (2.4-3.5); Glucose 173 mg/dL (80-115); Lipase 43 U/L (8-78); Protein, Total 8.1 g/dL (5.8-8.1); Sodium 139 mmol/L (136-145)
[2022-01-04] MEDS ORDERED: Ondansetron PF 4 MG/2 ML Vial ONE (10:37)
[2022-01-04 11:45] LABS: Lactic Acid 0.8 mmol/L (0.5-2.2)
[2022-01-04 11:50] LABS: SARS-CoV-2 NAA Rapid Test Not Detected (NotDetected)
[2022-01-04] MEDS ORDERED: Ondansetron ODT 4 MG TAB PO PRN (12:05)
[2022-01-04] MEDS ORDERED: Acetaminophen 325 MG TAB PO PRN (12:05)
[2022-01-04] MEDS ORDERED: Diltiazem 125 MG in Sodium Chloride 0.9% 100 ML IVPB SCH (12:15)
[2022-01-04] MEDS ORDERED: Albuterol Sulfate 2.5 mg/3 ml Neb NEB PRN (12:54)
[2022-01-04 13:09] LABS: Troponin I Less than 0.010 ng/mL (< 0.028)
[2022-01-04] MEDS: Nicotine 14 MG PATCH TD SCH (15:25)
[2022-01-04 15:34] LABS: Troponin I Less than 0.010 ng/mL (< 0.028)
[2022-01-04] MEDS: Ipratropium Bromide 2.5 ml Neb NEB SCH (19:05)
[2022-01-04] MEDS: Apixaban 5 MG TAB PO SCH (20:27)
[2022-01-05] MEDS: Ipratropium Bromide 2.5 ml Neb NEB SCH ×3 (02:29→12:52)
[2022-01-05 04:49] LABS: #Lymphocytes 1.8 thou/uL (1.20-3.40); #Monocytes 0.6 thou/uL (0.11-0.59); #Neutrophils 12.8 thou/uL (1.40-6.50); %Basophils 0.2 % (0.0-1.0); %Eosinophils 0.2 % (0.0-10.0); %Lymphocytes 11.7 % (21.0-51.0); %Monocytes 4.2 % (0.0-10.0); %Neutrophils 83.7 % (42.0-75.0); Hemoglobin 15.3 g/dL (12.0-16.0); Mean Corpuscular HGB CONC 32.7 g/dL (32.0-36.0); Mean Corpuscular Hemoglobin 32.6 pg (27.0-31.0); Mean Corpuscular Volume 99.7 fL (78.0-98.0); Mean Platelet Volume 8.6 fL (7.4-10.4); Platelet Count 176 thou/uL (130-400); RBC Distribution Width 13.3 % (11.5-14.5); White Blood Cell (WBC) Count 15.3 thou/uL (4.8-10.8)
[2022-01-05 05:04] LABS: Anion Gap 13 mmol/L (10-20); BUN (Urea Nitrogen) 10 mg/dL (9.8-20.1); Calc. Creatinine Clearance 102 mL/min (70-130); Calcium 9.3 mg/dL (7.8-10.44); Carbon Dioxide 24 mmol/L (23-31); Chloride 108 mmol/L (98-107); Glucose 144 mg/dL (80-115); Potassium 4.4 mmol/L (3.5-5.1); Sodium 141 mmol/L (136-145)
[2022-01-05] MEDS ORDERED: Spironolactone 25 MG TAB PO SCH (09:00)
[2022-01-05] MEDS ORDERED: Rosuvastatin 10 MG TAB PO SCH (09:00)
[2022-01-05] MEDS ORDERED: Escitalopram Oxalate 20 mg Tablet PO SCH (09:00)
[2022-01-05] MEDS: Apixaban 5 MG TAB PO SCH (10:22)
[2022-01-05] MEDS: Nicotine 14 MG PATCH TD SCH (12:29)
[2022-01-05 16:13] VITALS: BP 140/77; TEMP 98
== END 2022-01-05 18:51 | disposition home or self-care (01) | DRG 309 ==
LOC: ERS 07:51 → ERHOLD 11:38 → 2NO 14:37
PROVIDERS: ADMIT Family Medicine; ATTEND Internal Medicine
DX: I48.91 Unspecified atrial fibrillation (principal); N17.9 Acute kidney failure, unspecified; E86.0 Dehydration; Z96.652 Presence of left artificial knee joint; F17.210 Nicotine dependence, cigarettes, uncomplicated; F41.9 Anxiety disorder, unspecified; R00.1 Bradycardia, unspecified; E78.5 Hyperlipidemia, unspecified; Z20.822 Contact with and (suspected) exposure to COVID-19; Z86.19 Personal history of other infectious and parasitic diseases; Z86.711 Personal history of pulmonary embolism; Z90.710 Acquired absence of both cervix and uterus; Z79.899 Other long term (current) drug therapy
CPT/HCPCS: 36415; 71045; 80048; 80053; 83605; 83690; 83880; 84484; 85025; 87040; 93005; 94640; 94760; 96361; 96365; 96366; 96375; J2405; J2930

== ENCOUNTER 2022-01-09 15:29 | Outpatient (CLI) | payer BC ==
[2020-06-18 03:29] LABS: SARS-CoV-2 MS2 Positive; SARS-CoV-2 N Gene Negative; SARS-CoV-2 S Gene Negative; SARS-CoV-2 by NAA Not Detected (NotDetected); SARS-CoV-2 orf1ab Negative
[2022-01-09 16:58] LABS: #Eosinphils 0.1 10x3/uL (0.0-0.5); #Monocytes 0.9 10x3/uL (0.0-1.1); #Neutrophils 5.9 10x3/uL (1.5-8.4); %Basophils 0.3 % (0.0-2.0); %Eosinophils 1.1 % (0.0-6.0); %Lymphocytes 39.9 % (18.0-47.0); %Monocytes 7.4 % (0.0-10.0); Hemoglobin 15.4 g/dL (12.0-15.5); Mean Corpuscular HGB CONC 33.3 g/dL (32.0-36.0); Mean Corpuscular Hemoglobin 30.9 pg (27.0-33.0); Mean Corpuscular Volume 92.8 fl (81.6-98.3); Mean Platelet Volume 11.1 fl (7.4-10.4); Platelet Count 183 10x3/uL (150-450); RBC Distribution Width 13.8 % (11.5-14.5); Red Blood Cell (RBC) Count 4.99 10x6/uL (3.90-5.03); White Blood Cell (WBC) Count 11.6 10x3/uL (3.5-10.5)
[2022-01-09 17:18] LABS: Anion Gap 14 mmol/L (10-20); BUN (Urea Nitrogen) 13 mg/dL (9.8-20.1); Calc. Creatinine Clearance 0 mL/min (70-130); Calcium 9.9 mg/dL (7.8-10.44); Carbon Dioxide 26 mmol/L (23-31); Chloride 105 mmol/L (98-107); Estimated GFR 64; Glucose 105 mg/dL (80-115); Sodium 141 mmol/L (136-145)
== END 2022-01-09 15:30 | disposition home or self-care (01) ==
LOC: LABBT 15:29
PROVIDERS: ATTEND Internal Medicine Cardiovascular Disease
DX: Z01.818 Encounter for other preprocedural examination (principal); Z20.822 Contact with and (suspected) exposure to COVID-19; I48.91 Unspecified atrial fibrillation
CPT/HCPCS: 80048; 85025; 87811; U0003

== ENCOUNTER 2022-01-11 05:49 | Day surgery (SDC) | payer BC ==
[2022-01-10 10:05] VITALS: BMI 26.7
[2022-01-11] MEDS ORDERED: PROPOFOL 200 MG/20 ML VIAL ONE (08:00)
== END 2022-01-11 09:08 | disposition home or self-care (01) ==
LOC: SDC 05:49
PROVIDERS: ATTEND Internal Medicine Cardiovascular Disease
PROC: B246ZZ4 Ultrasonography of Right and Left Heart, Transesophageal (ICD-10-PCS; principal; 2022-01-11)
DX: I48.0 Paroxysmal atrial fibrillation (principal); I51.89 Other ill-defined heart diseases; I08.1 Rheumatic disorders of both mitral and tricuspid valves; I70.0 Atherosclerosis of aorta; I42.9 Cardiomyopathy, unspecified; I50.42 Chronic combined systolic (congestive) and diastolic (congestive) heart failure; E78.00 Pure hypercholesterolemia, unspecified; F17.210 Nicotine dependence, cigarettes, uncomplicated; G44.52 New daily persistent headache (NDPH); J44.9 Chronic obstructive pulmonary disease, unspecified; Z86.711 Personal history of pulmonary embolism; Z79.01 Long term (current) use of anticoagulants; Z79.82 Long term (current) use of aspirin; Z79.899 Other long term (current) drug therapy
CPT/HCPCS: 92960; 93312; J2704

== ENCOUNTER 2022-01-24 10:01 | Outpatient (CLI) | payer BC | END 2022-01-24 10:02 | disposition home or self-care (01) | LOC: BICCT 10:01 | PROVIDERS: ATTEND Internal Medicine Cardiovascular Disease | DX: I48.0 Paroxysmal atrial fibrillation (principal); I71.4 Abdominal aortic aneurysm, without rupture; J43.9 Emphysema, unspecified | CPT/HCPCS: 71275 ==

== ENCOUNTER 2022-01-29 11:05 | Outpatient (CLI) | payer BC ==
[2022-01-29 12:04] LABS: #Eosinphils 0.1 10x3/uL (0.0-0.5); #Monocytes 0.6 10x3/uL (0.0-1.1); #Neutrophils 5.5 10x3/uL (1.5-8.4); %Basophils 0.4 % (0.0-2.0); %Eosinophils 0.7 % (0.0-6.0); %Monocytes 5.9 % (0.0-10.0); %Neutrophils 52.7 % (40.0-75.0); Hemoglobin 15.6 g/dL (12.0-15.5); Mean Corpuscular HGB CONC 33.1 g/dL (32.0-36.0); Mean Corpuscular Hemoglobin 30.7 pg (27.0-33.0); Mean Corpuscular Volume 92.7 fl (81.6-98.3); Mean Platelet Volume 11.4 fl (7.4-10.4); Platelet Count 197 10x3/uL (150-450); RBC Distribution Width 12.9 % (11.5-14.5); Red Blood Cell (RBC) Count 5.08 10x6/uL (3.90-5.03); White Blood Cell (WBC) Count 10.5 10x3/uL (3.5-10.5)
[2022-01-29 12:26] LABS: Anion Gap 16 mmol/L (10-20); BUN (Urea Nitrogen) 13 mg/dL (9.8-20.1); Calc. Creatinine Clearance 0 mL/min (70-130); Calcium 10.1 mg/dL (7.8-10.44); Carbon Dioxide 24 mmol/L (23-31); Chloride 105 mmol/L (98-107); Estimated GFR 54; Glucose 120 mg/dL (80-115); Potassium 4.6 mmol/L (3.5-5.1); Sodium 140 mmol/L (136-145)
== END 2022-01-29 11:06 | disposition home or self-care (01) ==
LOC: LABBT 11:05
PROVIDERS: ATTEND Internal Medicine Cardiovascular Disease
DX: Z01.812 Encounter for preprocedural laboratory examination (principal); I48.91 Unspecified atrial fibrillation; Z20.822 Contact with and (suspected) exposure to COVID-19
CPT/HCPCS: 80048; 85025; 87811

== ENCOUNTER → 2022-01-31 | Day surgery (SDC) | payer BC ==
[2022-01-30 11:44] VITALS: BMI 27.1
[~2022-01-31] MED LIST changes: +Amiodarone 200 MG TAB ONE; -Iopamidol-370 76% 500 ML 1 ML ONE; +PROPOFOL 20 ML ONE; +PROPOFOL 200 MG/20 ML VIAL ONE
== END | disposition home or self-care (01) ==
LOC: SDC 10:38
PROVIDERS: ATTEND Internal Medicine Cardiovascular Disease
PROC: 5A2204Z Restoration of Cardiac Rhythm, Single (ICD-10-PCS; principal; 2022-01-31)
DX: I48.0 Paroxysmal atrial fibrillation (principal); I50.42 Chronic combined systolic (congestive) and diastolic (congestive) heart failure; E78.00 Pure hypercholesterolemia, unspecified; F17.210 Nicotine dependence, cigarettes, uncomplicated; G44.52 New daily persistent headache (NDPH); J44.9 Chronic obstructive pulmonary disease, unspecified; Z86.711 Personal history of pulmonary embolism; Z79.01 Long term (current) use of anticoagulants; Z79.82 Long term (current) use of aspirin; Z79.899 Other long term (current) drug therapy
CPT/HCPCS: 92960; J2704

== ENCOUNTER 2023-02-06 10:30 | Emergency (ER) | payer BC ==
[~2023-02-06 10:30] MED LIST changes: -Amiodarone 200 MG TAB ONE; +Iopamidol-370 76% 500 ML MDV (1 ML CHARGE) ONE; -PROPOFOL 20 ML ONE; -PROPOFOL 200 MG/20 ML VIAL ONE
[2023-02-06 11:38] LABS: #Eosinphils 0.1 thou/uL (0.0-0.7); #Monocytes 0.8 thou/uL (0.11-0.59); #Neutrophils 6.6 thou/uL (1.40-6.50); %Basophils 0.4 % (0.0-1.0); %Eosinophils 0.5 % (0.0-10.0); %Lymphocytes 24.3 % (21.0-51.0); %Monocytes 7.7 % (0.0-10.0); %Neutrophils 66.7 % (42.0-75.0); Hemoglobin 15.8 g/dL (12.0-16.0); Mean Corpuscular HGB CONC 33.1 g/dL (32.0-36.0); Mean Corpuscular Hemoglobin 32.2 pg (27.0-31.0); Mean Corpuscular Volume 97.6 fl (78.0-98.0); Platelet Count 192 10x3/uL (130-400); RBC Distribution Width 14.3 % (11.5-14.5); White Blood Cell (WBC) Count 9.9 10x3/uL (4.8-10.8)
[2023-02-06 12:01] LABS: ALT (SGPT) 44 U/L (8-55); AST (SGOT) 43 U/L (5-34); Albumin 4.5 g/dL (3.4-4.8); Alkaline Phosphatase 59 U/L (40-110); Anion Gap 13 mmol/L (10-20); BUN (Urea Nitrogen) 12 mg/dL (9.8-20.1); Bilirubin, Total 0.6 mg/dL (0.2-1.2); Calc. Creatinine Clearance 0 mL/min (70-130); Calcium 9.9 mg/dL (7.8-10.44); Carbon Dioxide 25 mmol/L (23-31); Chloride 106 mmol/L (98-107); Estimated GFR 54; Globulin 3.1 g/dL (2.4-3.5); Glucose 116 mg/dL (80-115); Lipase 37 U/L (8-78); Potassium 4.7 mmol/L (3.5-5.1); Protein, Total 7.6 g/dL (5.8-8.1); Sodium 139 mmol/L (136-145)
== END 2023-02-06 12:59 | disposition home or self-care (01) ==
LOC: ERS 10:30
DX: R07.89 Other chest pain (principal); F17.210 Nicotine dependence, cigarettes, uncomplicated; I48.91 Unspecified atrial fibrillation; Z79.01 Long term (current) use of anticoagulants
CPT/HCPCS: 36415; 71045; 71275; 80053; 83690; 84484; 85025; 93005; Q9967

== ENCOUNTER 2023-02-20 07:53 | Outpatient (CLI) | payer BC | END 2023-02-20 07:54 | disposition home or self-care (01) | LOC: RAD 07:53 | PROVIDERS: ATTEND Internal Medicine Critical Care Medicine | DX: R06.00 Dyspnea, unspecified (principal) | CPT/HCPCS: 71046 ==

== ENCOUNTER 2023-04-01 08:02 | Outpatient (CLI) | payer BC | END 2023-04-01 08:03 | disposition home or self-care (01) | LOC: BICMRI 08:02 | PROVIDERS: ATTEND Family Medicine | DX: R55 Syncope and collapse (principal) | CPT/HCPCS: 70551 ==

== ENCOUNTER 2023-08-10 18:58 | Observation (INO) | payer BC ==
[2023-08-10 19:53] LABS: #Monocytes 0.6 thou/uL (0.11-0.59); #Neutrophils 6.2 thou/uL (1.40-6.50); %Basophils 0.3 % (0.0-1.0); %Eosinophils 0.5 % (0.0-10.0); %Lymphocytes 19.2 % (21.0-51.0); %Monocytes 7.1 % (0.0-10.0); %Neutrophils 71.9 % (42.0-75.0); Hematocrit 44.9 % (36.0-47.0); Hemoglobin 14.9 g/dL (12.0-16.0); Mean Corpuscular HGB CONC 33.2 g/dL (32.0-36.0); Mean Corpuscular Hemoglobin 32.4 pg (27.0-31.0); Mean Corpuscular Volume 97.6 fl (78.0-98.0); Mean Platelet Volume 10.6 fL (7.4-10.4); Platelet Count 143 10x3/uL (130-400); RBC Distribution Width 13.4 % (11.5-14.5); White Blood Cell (WBC) Count 8.6 10x3/uL (4.8-10.8)
[2023-08-10 20:17] LABS: ALT (SGPT) 55 U/L (8-55); AST (SGOT) 64 U/L (5-34); Alkaline Phosphatase 64 U/L (40-110); Anion Gap 16 mmol/L (10-20); BUN (Urea Nitrogen) 11 mg/dL (9.8-20.1); Bilirubin, Total 0.5 mg/dL (0.2-1.2); Calc. Creatinine Clearance 0 mL/min (70-130); Calcium 8.3 mg/dL (7.8-10.44); Carbon Dioxide 21 mmol/L (23-31); Chloride 106 mmol/L (98-107); Estimated GFR 52; Globulin 2.4 g/dL (2.4-3.5); Glucose 137 mg/dL (80-115); Potassium 3.7 mmol/L (3.5-5.1); Protein, Total 6.4 g/dL (5.8-8.1); Sodium 139 mmol/L (136-145)
[2023-08-10 20:22] LABS: Troponin I Less than 0.010 ng/mL (< 0.028)
[2023-08-10] MEDS ORDERED: Magnesium 2 GM/50 ML BAG (IN WATER) ONE (21:06)
[2023-08-10] MEDS ORDERED: methylPREDNISolone Sod Succ/PF 125 MG/2 ML VIAL ONE (21:06)
[2023-08-10] MEDS ORDERED: Ipratropium/Albuterol 3 ML NEB ONE (21:09)
[2023-08-10 21:48] LABS: SARS-CoV-2 NAA Rapid Test Not Detected (NotDetected)
[2023-08-10] MEDS ORDERED: Ipratropium/Albuterol 3 ML NEB NEB PRN (22:35)
[2023-08-10] MEDS ORDERED: Ondansetron ODT 4 MG TAB PO PRN (22:35)
[2023-08-10] MEDS ORDERED: Acetaminophen 325 MG TAB PO PRN (22:35)
[2023-08-10] MEDS ORDERED: Acetaminophen 650 MG Suppository PR PRN (22:35)
[2023-08-10] MEDS ORDERED: Ondansetron PF 4 MG/2 ML Vial IVP PRN (22:35)
[2023-08-10] MEDS ORDERED: Acetaminophen 500 MG TAB PO SCH (22:45)
[2023-08-10 23:47] LABS: Troponin I Less than 0.010 ng/mL (< 0.028)
[2023-08-11 00:52] VITALS: BMI 33.8
[2023-08-11 02:05] LABS: #Monocytes 0.1 thou/uL (0.11-0.59); #Neutrophils 5.6 thou/uL (1.40-6.50); %Basophils 0.2 % (0.0-1.0); %Lymphocytes 10.1 % (21.0-51.0); %Monocytes 1.4 % (0.0-10.0); %Neutrophils 87.4 % (42.0-75.0); Hematocrit 44.4 % (36.0-47.0); Hemoglobin 14.6 g/dL (12.0-16.0); Mean Corpuscular HGB CONC 32.9 g/dL (32.0-36.0); Mean Corpuscular Hemoglobin 32.5 pg (27.0-31.0); Mean Corpuscular Volume 98.9 fl (78.0-98.0); Mean Platelet Volume 10.4 fL (7.4-10.4); Platelet Count 132 10x3/uL (130-400); RBC Distribution Width 13.3 % (11.5-14.5); Red Blood Cell (RBC) Count 4.49 mill/uL (4.20-5.40); White Blood Cell (WBC) Count 6.4 10x3/uL (4.8-10.8)
[2023-08-11] MEDS: Ipratropium/Albuterol 3 ML NEB NEB SCH ×6 (02:09→22:17)
[2023-08-11 02:28] LABS: Troponin I Less than 0.010 ng/mL (< 0.028)
[2023-08-11 03:42] LABS: Anion Gap 17 mmol/L (10-20); BUN (Urea Nitrogen) 11 mg/dL (9.8-20.1); Calc. Creatinine Clearance 80 mL/min (70-130); Calcium 8.4 mg/dL (7.8-10.44); Carbon Dioxide 18 mmol/L (23-31); Chloride 107 mmol/L (98-107); Estimated GFR 56; Glucose 213 mg/dL (80-115); Sodium 138 mmol/L (136-145)
[2023-08-11] MEDS: Loratadine 10 MG TAB PO SCH (08:17)
[2023-08-11] MEDS: Amiodarone 200 MG TAB PO SCH (08:17)
[2023-08-11] MEDS: Apixaban 5 MG TAB PO SCH ×2 (08:17→20:34)
[2023-08-11] MEDS: Rosuvastatin 20 MG TAB PO SCH (08:17)
[2023-08-11] MEDS: Spironolactone 25 MG TAB PO SCH (08:17)
[2023-08-11] MEDS: Escitalopram Oxalate 20 mg Tablet PO SCH (08:18)
[2023-08-11] MEDS ORDERED: methylPREDNISolone Sod Succ/PF 125 MG/2 ML VIAL IVP SCH (09:00)
[2023-08-11] MEDS ORDERED: Non-Formulary Item 1 EACH (Tiotropium Bromide [Spiriva Handihaler] 18 MCG Cap.W.Dev) IH SCH (09:00)
[2023-08-11] MEDS ORDERED: Ipratropium Bromide 2.5 ml Neb NEB PRN (14:00)
[2023-08-11] MEDS ORDERED: GUAIFENESIN DM SF 5 ML UDCUP PO PRN (14:01)
[2023-08-11] MEDS ORDERED: Acyclovir 800 mg Tablet PO PRN (14:01)
[2023-08-11] MEDS ORDERED: Albuterol 1.25 MG (3 mL) NEB NEB PRN (14:14)
[2023-08-11] MEDS: Mometasone 100 MCG HFA INHALER (RT USE) INH SCH (18:46)
[2023-08-11] MEDS: Famotidine 20 MG TAB PO SCH (20:34)
[2023-08-11] MEDS ORDERED: ALPRAZolam 1 MG TAB PO SCH (21:00)
[2023-08-12] MEDS: Ipratropium/Albuterol 3 ML NEB NEB SCH ×3 (02:13→11:12)
[2023-08-12 06:19] LABS: #Monocytes 0.7 thou/uL (0.11-0.59); #Neutrophils 11.1 thou/uL (1.40-6.50); %Basophils 0.1 % (0.0-1.0); %Lymphocytes 5.8 % (21.0-51.0); %Monocytes 5.2 % (0.0-10.0); %Neutrophils 88.1 % (42.0-75.0); Hematocrit 43.3 % (36.0-47.0); Hemoglobin 14.4 g/dL (12.0-16.0); Mean Corpuscular HGB CONC 33.3 g/dL (32.0-36.0); Mean Corpuscular Hemoglobin 32.8 pg (27.0-31.0); Mean Corpuscular Volume 98.6 fl (78.0-98.0); Mean Platelet Volume 10.8 fL (7.4-10.4); Platelet Count 146 10x3/uL (130-400); RBC Distribution Width 13.3 % (11.5-14.5); Red Blood Cell (RBC) Count 4.39 mill/uL (4.20-5.40); White Blood Cell (WBC) Count 12.7 10x3/uL (4.8-10.8)
[2023-08-12 06:51] LABS: Anion Gap 12 mmol/L (10-20); BUN (Urea Nitrogen) 17 mg/dL (9.8-20.1); Calc. Creatinine Clearance 99 mL/min (70-130); Calcium 9.1 mg/dL (7.8-10.44); Carbon Dioxide 23 mmol/L (23-31); Chloride 107 mmol/L (98-107); Estimated GFR 72; Glucose 142 mg/dL (80-115); Potassium 4.3 mmol/L (3.5-5.1); Sodium 138 mmol/L (136-145)
[2023-08-12] MEDS: Mometasone 100 MCG HFA INHALER (RT USE) INH SCH (07:51)
[2023-08-12] MEDS: Rosuvastatin 20 MG TAB PO SCH (08:58)
[2023-08-12] MEDS: Famotidine 20 MG TAB PO SCH (08:58)
[2023-08-12] MEDS: Loratadine 10 MG TAB PO SCH (08:58)
[2023-08-12] MEDS: Apixaban 5 MG TAB PO SCH (08:58)
[2023-08-12] MEDS: Spironolactone 25 MG TAB PO SCH (08:58)
[2023-08-12] MEDS: Amiodarone 200 MG TAB PO SCH (08:58)
[2023-08-12] MEDS: Escitalopram Oxalate 20 mg Tablet PO SCH (08:58)
[2023-08-12] MEDS ORDERED: methylPREDNISolone Sod Succ 40 MG VIAL IVP SCH (09:00)
[2023-08-12] MEDS ORDERED: Aspirin 81 mg Enteric Coated Tablet PO SCH (09:00)
[2023-08-12 15:45] VITALS: BP 156/96; TEMP 98.1
== END 2023-08-12 13:33 | disposition home or self-care (01) ==
LOC: SUATTDRO 18:58 → ERS 18:58 → T4-B 22:38
PROVIDERS: ADMIT Family Medicine; ATTEND Hospitalist
DX: J44.1 Chronic obstructive pulmonary disease with (acute) exacerbation (principal); I48.91 Unspecified atrial fibrillation; E78.5 Hyperlipidemia, unspecified; F17.210 Nicotine dependence, cigarettes, uncomplicated; F41.9 Anxiety disorder, unspecified; R73.9 Hyperglycemia, unspecified; Z79.01 Long term (current) use of anticoagulants; Z79.899 Other long term (current) drug therapy; Z79.82 Long term (current) use of aspirin; Z86.711 Personal history of pulmonary embolism; Z90.710 Acquired absence of both cervix and uterus; Z96.652 Presence of left artificial knee joint; Z98.890 Other specified postprocedural states
CPT/HCPCS: 36415; 71045; 80048; 80053; 83605; 83880; 84484; 85025; 93005; 94640; 96365; 96375; 96376; G0378; J2920; J2930; J3475; J7620

== ENCOUNTER 2023-08-27 20:14 | Emergency (ER) | payer BC ==
[2023-08-27 20:51] LABS: #Eosinphils 0.1 thou/uL (0.0-0.7); #Monocytes 0.5 thou/uL (0.11-0.59); #Neutrophils 3.7 thou/uL (1.40-6.50); %Basophils 0.4 % (0.0-1.0); %Eosinophils 0.9 % (0.0-10.0); %Monocytes 6.3 % (0.0-10.0); Hematocrit 45.4 % (36.0-47.0); Hemoglobin 15.2 g/dL (12.0-16.0); Mean Corpuscular HGB CONC 33.5 g/dL (32.0-36.0); Mean Corpuscular Hemoglobin 32.7 pg (27.0-31.0); Mean Corpuscular Volume 97.6 fl (78.0-98.0); Platelet Count 189 10x3/uL (130-400); RBC Distribution Width 13.2 % (11.5-14.5); Red Blood Cell (RBC) Count 4.65 mill/uL (4.20-5.40); White Blood Cell (WBC) Count 8.5 10x3/uL (4.8-10.8)
[2023-08-27 21:12] LABS: ALT (SGPT) 51 U/L (8-55); AST (SGOT) 57 U/L (5-34); Albumin 4.1 g/dL (3.4-4.8); Alkaline Phosphatase 81 U/L (40-110); Anion Gap 12 mmol/L (10-20); BUN (Urea Nitrogen) 5 mg/dL (9.8-20.1); Bilirubin, Total 0.6 mg/dL (0.2-1.2); Calc. Creatinine Clearance 0 mL/min (70-130); Calcium 8.9 mg/dL (7.8-10.44); Carbon Dioxide 22 mmol/L (23-31); Chloride 104 mmol/L (98-107); Estimated GFR 59; Globulin 3.1 g/dL (2.4-3.5); Glucose 109 mg/dL (80-115); Potassium 3.7 mmol/L (3.5-5.1); Protein, Total 7.2 g/dL (5.8-8.1); Sodium 134 mmol/L (136-145)
[2023-08-27 21:16] LABS: Troponin I 0.011 ng/mL (< 0.028)
[2023-08-27 21:31] LABS: SARS-CoV-2 NAA Rapid Test Not Detected (NotDetected)
[2023-08-27] MEDS ORDERED: Ketorolac Tromethamine 30 MG (1 mL) VIAL ONE (23:34)
[2023-08-27] MEDS ORDERED: Cyclobenzaprine 10 MG TAB ONE (23:34)
== END 2023-08-28 02:50 | disposition home or self-care (01) ==
LOC: ERS 20:14
DX: M54.6 Pain in thoracic spine (principal); I48.91 Unspecified atrial fibrillation; J44.9 Chronic obstructive pulmonary disease, unspecified; F17.210 Nicotine dependence, cigarettes, uncomplicated; Z55.6 Problems related to health literacy; Z79.01 Long term (current) use of anticoagulants; Z86.711 Personal history of pulmonary embolism; Z79.82 Long term (current) use of aspirin; Z79.899 Other long term (current) drug therapy
CPT/HCPCS: 36415; 71045; 71275; 80053; 83690; 83880; 84484; 85025; 85379; 93005; 96374; J1885; Q9967

== ENCOUNTER 2024-04-20 08:10 | Outpatient (CLI) | payer BC ==
[2024-04-20] MEDS ORDERED: Iopamidol 370 76% 100 ML VIAL ONE (09:38)
== END 2024-04-20 08:11 | disposition home or self-care (01) ==
LOC: CT 08:10
PROVIDERS: ATTEND Nurse Practitioner Family
DX: I77.810 Thoracic aortic ectasia (principal); J43.2 Centrilobular emphysema; K76.0 Fatty (change of) liver, not elsewhere classified
CPT/HCPCS: 71275; Q9967

== ENCOUNTER 2024-05-13 08:40 | Outpatient (CLI) | payer BC | END 2024-05-13 08:41 | disposition home or self-care (01) | LOC: BICMAMMO 08:40 | PROVIDERS: ATTEND Family Medicine | DX: Z12.31 Encounter for screening mammogram for malignant neoplasm of breast (principal) | CPT/HCPCS: 77063; 77067 ==

== ENCOUNTER 2024-05-19 08:32 | Emergency (ER) | payer BC ==
[2024-05-19 09:09] LABS: #Basophils 0.04 10x3/uL (0.0-0.2); %Basophils 0.4 % (0.0-1.0); %Eosinophils 0.9 % (0.0-10.0); %Lymphocytes 18.3 % (21.0-51.0); %Monocytes 6.4 % (0.0-10.0); %Neutrophils 73.7 % (42.0-75.0); Hematocrit 47.7 % (36.0-47.0); Hemoglobin 15.9 g/dL (12.0-16.0); Mean Corpuscular HGB CONC 33.3 g/dL (32.0-36.0); Mean Corpuscular Hemoglobin 34.4 pg (27.0-31.0); Mean Corpuscular Volume 103.2 fL (78.0-98.0); Mean Platelet Volume 10.4 fL (7.4-10.4); Platelet Count 262 10x3/uL (130-400); RBC Distribution Width 15.9 % (11.5-14.5); Red Blood Cell (RBC) Count 4.62 mill/uL (4.20-5.40)
[2024-05-19 09:27] LABS: ALT (SGPT) 68 U/L (8-55); AST (SGOT) 132 U/L (5-34); Albumin 3.1 g/dL (3.4-4.8); Alkaline Phosphatase 218 U/L (40-110); Anion Gap 15 mmol/L (10-20); BUN (Urea Nitrogen) 4 mg/dL (9.8-20.1); Bilirubin, Total 1.2 mg/dL (0.2-1.2); Calc. Creatinine Clearance 0 mL/min (70-130); Calcium 8.9 mg/dL (7.8-10.44); Carbon Dioxide 21 mmol/L (23-31); Chloride 105 mmol/L (98-107); Estimated GFR 62; Globulin 4.1 g/dL (2.4-3.5); Glucose 166 mg/dL (80-115); Lipase 44 U/L (8-78); Potassium 3.9 mmol/L (3.5-5.1); Protein, Total 7.2 g/dL (5.8-8.1); Sodium 137 mmol/L (136-145)
[2024-05-19 09:28] LABS: Troponin I Less than 0.010 ng/mL (< 0.028)
[2024-05-19] MEDS ORDERED: Iopamidol-370 76% 500 ML MDV (1 ML CHARGE) ONE (10:12)
== END 2024-05-19 12:03 | disposition home or self-care (01) ==
LOC: ERS 08:32
DX: S52.591A Other fractures of lower end of right radius, initial encounter for closed fracture (principal); S62.111A Displaced fracture of triquetrum [cuneiform] bone, right wrist, initial encounter for closed fracture; R74.01 Elevation of levels of liver transaminase levels; R07.9 Chest pain, unspecified; I48.91 Unspecified atrial fibrillation; F17.210 Nicotine dependence, cigarettes, uncomplicated; W19.XXXA Unspecified fall, initial encounter; Z79.82 Long term (current) use of aspirin; Z79.01 Long term (current) use of anticoagulants; Z79.51 Long term (current) use of inhaled steroids; Z79.899 Other long term (current) drug therapy
CPT/HCPCS: 29125; 71045; 71275; 76705; 80053; 83690; 83880; 84484; 85025; 93005; 94760; Q9967